=== PATIENT | male | born 1995 | race Caucasian/White ===

== ENCOUNTER 2024-11-25 11:52 | Emergency (ER) | payer SELFPAY ==
[2024-11-25 12:00] VITALS: BP 140/88; PULSE 98; O2SAT 99
[2024-11-25 12:04] VITALS: BP 125/77; PULSE 97; RESP 18; TEMP 36.6; O2SAT 98; BMI 24.8
--- NOTE | 2024-11-25 12:07 | CA_ITS ---
FINAL REPORT TECHNIQUE: Multiple transverse and longitudinal images were performed of the right femoral-popliteal deep venous system with augmentation and compression maneuvers. CLINICAL HISTORY: Pain/edema rt ankle/foot wound medial right knee FINDINGS: Right lower extremity duplex ultrasound demonstrates normal flow in the deep venous system. There is no abnormal echogenicity to suggest thrombus. There is normal compression and augmentation. There are right groin lymph nodes measuring up to 3 cm. IMPRESSION: No evidence of right DVT. Reviewed, Interpreted and Dictated by Jamar Penaloza MD Transcribed by Jaqueline Suh Authenticated and [facility]
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
--- NOTE | 2024-11-25 12:21 | XR_ITS ---
FINAL REPORT CLINICAL HISTORY: swelling FINDINGS: Right knee Three views were obtained. There is no fracture or dislocation. The joint spaces appear normal. No soft tissue abnormality is identified. Ovoid sclerotic focus in the proximal tibial metaphysis measures 1.6 cm is consistent with an enostosis. IMPRESSION: No acute process. Reviewed, Interpreted and Dictated by Jamar Penaloza MD Transcribed by Jaqueline Suh Authenticated and [facility]
--- NOTE | 2024-11-25 12:21 | XR_ITS ---
FINAL REPORT CLINICAL HISTORY: pain FINDINGS: Right foot Three views were obtained. There is no fracture or dislocation. The joint spaces appear normal. No soft tissue abnormality is identified. IMPRESSION: No acute process. Reviewed, Interpreted and Dictated by Jamar Penaloza MD Transcribed by Jaqueline Suh Authenticated and . [facility]
--- NOTE | 2024-11-25 12:21 | XR_ITS ---
FINAL REPORT CLINICAL HISTORY: pain FINDINGS: Right ankle Three views were obtained. There is no fracture or dislocation. The joint spaces appear normal. There is moderate soft tissue edema about the ankle. IMPRESSION: Moderate soft tissue edema without acute osseous abnormality. Reviewed, Interpreted and Dictated by Jamar Penaloza MD Transcribed by Jaqueline Suh Authenticated and [facility]
--- NOTE | 2024-11-25 12:21 | XR_ITS ---
FINAL REPORT CLINICAL HISTORY: pain FINDINGS: Right tibia fibula Two views were obtained. There is no fracture or dislocation. The joint spaces appear normal. No soft tissue abnormality is identified. IMPRESSION: No acute process. Reviewed, Interpreted and Dictated by Jamar Penaloza MD Transcribed by Jaqueline Suh Authenticated and [facility]
[2024-11-25 12:32] LABS: Hematocrit 37.3 % (42.0-52.0); Hemoglobin 12.8 g/dL (14.1-18.0); Immature Granulocytes % 0 %; Mean Corpuscular HGB Conc 34.3 g/dL (31.8-35.4); Mean Corpuscular Hemoglobin 27.4 pg (27.0-31.2); Mean Corpuscular Volume 79.7 fl (80-94); Nucleated Red Blood Cells % 0 %; Platelet Count 174 K/mm3 (142-424); Red Blood Count 4.68 M/mm3 (4.60-6.20); Red Cell Distribution Width-SD 40.0 fL; White Blood Count 5.7 K/mm3 (4.8-10.8)
[2024-11-25] MEDS: KETOROLAC 30MG/ML VIAL 30 MG IV (12:36)
[2024-11-25 13:03] LABS: Albumin Level 4.5 g/dl (3.5-5.0); Chloride 108 mmol/L (98-107)
[2024-11-25 13:04] LABS: Potassium 3.9 mmoL/L (3.5-5.1); Sodium 138 mmol/L (136-145)
[2024-11-25 13:06] LABS: Alanine Aminotransferase 27 U/L (12-78); Albumin/Globulin Ratio 1.6 (1.1-1.8); Alkaline Phosphatase 57 U/L (38-126); Aspartate Amino Transferase 32 U/L (17-59); Bilirubin,Total 0.7 mg/dl (0.2-1.3); Blood Urea Nitrogen 19 mg/dl (9-20); Creatinine Clearance Estimated 153 mL/min (50-200); Creatinine,Serum 0.80 mg/dl (0.66-1.25); Estimated Glomerular Filt Rate 115 ml/min (>60); GFR (African American) 139 ML/MIN (>60); Globulin 2.8 g/dL (1.3-3.2); Total Protein,Serum 7.3 g/dl (6.3-8.2)
[2024-11-25 13:07] LABS: Calcium 8.8 mg/dl (8.4-10.2); Glucose 95 mg/dl (74-100); Lipase 32 U/L (23-300); Magnesium 1.9 mg/dl (1.6-2.3)
--- NOTE | 2024-11-25 13:24 | PC.NURSE ---
Called for possible transfer, power shared images
[2024-11-25 13:42] LABS: Anion Gap 8.9 mEq/L (5-15); Carbon Dioxide 25 mmol/L (22.0-30.0)
--- NOTE | 2024-11-25 14:38 | CT_ITS ---
FINAL REPORT TECHNIQUE: Axial images were obtained of the lumbar spine by computed tomography. Coronal and sagittal reconstruction process performed. This study was performed with techniques to keep radiation doses as low as reasonably achievable (ALARA). Individualized dose reduction techniques using automated exposure control or adjustment of mA and/or kV according to the patient''s size were employed. CLINICAL HISTORY: leg numbness COMPARISON: None FINDINGS: Lumbar vertebrae show normal height. Disc spaces are well-preserved. There is no malalignment. The facets are properly aligned. IMPRESSION: No acute bony abnormality. Reviewed, Interpreted and Dictated by Jamar Penaloza MD Transcribed by Ginna Muniz Authenticated and . [facility]
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
[2024-11-25 15:49] VITALS: BP 109/82; PULSE 72; RESP 18; TEMP 36.8; O2SAT 100
== END 2024-11-25 15:58 | disposition home or self-care (01) ==
PROVIDERS: Nurse Practitioner; Emergency Provider Student in an Organized Health Care Education/Training Program
DX: M79.609 Pain in unspecified limb (principal)
CPT/HCPCS: 72131; 73562; 73590; 73610; 73630; 80053; 83690; 83735; 85025; 93971; 96374; 99284; 99285; J1885